=== PATIENT | female | born 2005 | race Caucasian/White ===

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

== ENCOUNTER 2023-01-11 00:33 | Emergency (ER) | payer MEDICAID ==
[~2023-01-11] VITALS: Ht 162.6 cm; Wt 59.1 kg
[2023-01-11 00:43] VITALS: BP 100/70
[2023-01-11] MEDS ORDERED: PREN1COM10 PO (00:55)
== END 2023-01-11 01:49 | disposition home or self-care (01) ==
LOC: ER 00:37
DX: O26.891 Other specified pregnancy related conditions, first trimester (principal); F10.920 Alcohol use, unspecified with intoxication, uncomplicated; J45.909 Unspecified asthma, uncomplicated; Z3A.01 Less than 8 weeks gestation of pregnancy; Z34.90 Encounter for supervision of normal pregnancy, unspecified, unspecified trimester
CPT/HCPCS: 99283

== ENCOUNTER 2024-03-05 19:38 | Emergency (ER) | payer MEDICAID ==
[~2024-03-05] VITALS: Ht 162.6 cm; Wt 86.7 kg
[~2024-03-05 19:38] MED LIST changes: +PREN1COM10 PO
[2024-03-05 19:40] VITALS: BP 111/57; PULSE 87; RESP 16; TEMP 97.7; O2SAT 100
[2024-03-05] MEDS: BUPIVAcaine 0.5% W/EPI /PF 30ml vial IJ ONE (20:37)
[2024-03-05] MEDS ORDERED: AMOX-115 PO (20:52)
[2024-03-05] MEDS: amox tr/potassium clavulanate 500mg/125mg TAB PO SCH (20:57)
[2024-03-05] MEDS: amox tr/potassium clavulanate 500mg/125mg TAB PO ONE (21:16)
[2024-03-06] MEDS ORDERED: AMOX-117 PO (20:05)
== END 2024-03-05 23:15 | disposition home or self-care (01) ==
LOC: ER 19:38
DX: K02.9 Dental caries, unspecified (principal); K08.89 Other specified disorders of teeth and supporting structures; R68.84 Jaw pain; F12.90 Cannabis use, unspecified, uncomplicated; F17.200 Nicotine dependence, unspecified, uncomplicated
CPT/HCPCS: 64450; 99284